=== PATIENT | male | born 1985 | race Caucasian/White ===

== ENCOUNTER 2016-05-20 11:37 | Emergency (ER) | payer OTHER ==
[2016-05-20 12:21] LABS: BASO % 0.2 % (0.2-1.2); EOS # 0.1 10_X3_uL (0.0-0.5); EOS % 0.5 % (0.8-7.0); GRAN # 7.8 10_X3_uL (1.8-5.4); GRAN % 77.9 % (34.0-67.9); HEMATOCRIT 45.8 % (40-51); HEMOGLOBIN 15.9 g/dL (13.7-17.5); LYMPH # 1.4 10_X3_uL (1.3-3.6); LYMPH % 13.9 % (21.8-53.1); MEAN CORPUSCULAR HEMOGLOBIN 33.8 pg (27.0-33.0); MEAN CORPUSCULAR HGB CONC 34.7 g/dL (32.0-36.0); MEAN CORPUSCULAR VOLUME 97.2 fL (79-92); MEAN PLATELET VOLUME 11.1 fl (7.5-11.5); MONO # 0.8 10_X3_uL (0.3-0.8); MONO % 7.5 % (5.3-12.2); PLATELET COUNT 137 x10_3/uL (163-337); RED BLOOD COUNT 4.71 x10_6/uL (4.6-6.1); RED CELL DISTRIBUTION WIDTH 13.8 % (11.6-14.4)
[2016-05-20 12:26] LABS: BLOOD UREA NITROGEN 12 mg/dL (7-18); CALCIUM 9.3 mg/dL (8.7-10.7); CARBON DIOXIDE 26 mmol/L (21-32); CREATININE 1.1 mg/dL (0.6-1.3); GLUCOSE,RANDOM 94 mg/dL (70-99); POTASSIUM 4.2 mmol/L (3.5-5.1); SODIUM 137 mmol/L (136-145)
== END 2016-05-20 13:32 | disposition home or self-care (01) ==
LOC: ER 11:37
PROVIDERS: Emergency Medicine
DX: L03.115 Cellulitis of right lower limb (principal); F17.210 Nicotine dependence, cigarettes, uncomplicated
CPT/HCPCS: 36415; 73610; 80048; 85025; 99283; 99283-25

== ENCOUNTER 2016-07-22 20:17 | Emergency (ER) | payer OTHER | END 2016-07-22 21:47 | disposition home or self-care (01) | LOC: ER 20:17 | DX: S61.011A Laceration without foreign body of right thumb without damage to nail, initial encounter (principal); W45.8XXA Other foreign body or object entering through skin, initial encounter | CPT/HCPCS: 12001; 99070; 99282 ==